=== PATIENT | male | born 1955 | race African-American/Black ===

== ENCOUNTER 2021-12-04 06:29 | Day surgery (SDC) | payer OTHER ==
[2021-12-04] MEDS ORDERED: NA CHLORIDE 0.9% 1,000 ML ONE (06:58)
[2021-12-04] MEDS ORDERED: EPINEPHRINE/PF 1 MG/ML AMP ONE (07:08)
[2021-12-04] MEDS ORDERED: propofoL 200 MG/20 ML VIAL IV ONE (07:44)
[2021-12-04] MEDS ORDERED: LIDOCAINE 1% MPF 5 ML VIAL ONE (07:44)
[2021-12-04] MEDS ORDERED: EPHEDRINE SULF 50 MG/ML VIAL ONE (08:03)
[2021-12-04] MEDS ORDERED: NS 0.9% VIAL 10 ML ONE (08:03)
--- NOTE | 2021-12-04 08:03 | ENDO RPT ---
[address], [address] EGD PROCEDURE REPORT EXAM DATE: 12/04/2021 PATIENT NAME: Guy Dillon MR#: [id number] BIRTHDATE: 1955 ATTENDING: Sal [address] STATUS: outpatient OFFICE SERVICES CLERK: Dolores Smith RN and Bouchra Marcus INDICATIONS: The patient is a 66 yr old Male here for an EGD due to anemia PROCEDURE PERFORMED: EGD with biopsy MEDICATIONS: Per Anesthesia. TOPICAL ANESTHETIC: none CONSENT: The patient understands the risks and benefits of the procedure and understands that these risks include, but are not limited to: sedation, allergic reaction, infection, perforation and/or bleeding. Alternative means of evaluation and treatment include, among others: physical exam, x-rays, and/or surgical intervention. The patient elects to proceed with this endoscopic procedure. DESCRIPTION OF PROCEDURE: During intra-op preparation period all mechanical medical equipment was checked for proper function. Hand hygiene and appropriate measures for infection prevention was taken. Procedure, possible complications, and alternatives including but not limited to the possibility of bleeding, perforation, tear, infection, sepsis, need for surgery, need for blood transfusion, and anesthesia related complications were explained to the patient. After the risks, benefits and alternatives of the procedure were thoroughly explained, Informed consent was verified, confirmed and timeout was successfully executed by the treatment team. The patient was placed in the left lateral position. The patient was anesthetized with topical anesthesia. Through the anesthetized oropharyngeal area, the scope was passed without any difficulty. The EC-3890Li ([id number]) and Pentax EG-[id number] ([id number]) endoscope was introduced through the mouth and advanced to the third portion of the duodenum. Retroflexed views revealed no abnormalities. The gastroscope was then slowly withdrawn and removed. Moderate hemorrhagic gastritis was found in the antrum. Multiple biopsies were obtained and sent to pathology. Small bowel biopsies obtained with history of unexplained anemia. ADVERSE EVENTS: There were no complications. IMPRESSIONS: 1. Moderate hemorrhagic gastritis in the antrum, s/p biopsies 2. Small bowel biopsies obtained with history of unexplained anemia RECOMMENDATIONS: 1. await biopsy results 2. acid suppression therapy REPEAT EXAM: Sal Gan Dr eSigned: Sal Gan Dr 12/04/2021 8:02 AM cc: Robby Leon CPT CODES: ICD9 CODES: PATIENT NAME: Guy Dillon MR#: [id number]
--- NOTE | 2021-12-04 08:29 | ENDO RPT ---
[address], [address] COLONOSCOPY PROCEDURE REPORT EXAM DATE: 12/04/2021 PATIENT NAME: Guy Dillon MR #: [id number] BIRTHDATE: 1955 ATTENDING: Sal Gan Dr STATUS: outpatient [employer] SPECIALIST: Dolores Smith RN and Bouchra Marcus INDICATIONS: The patient is a 66 yr old Male here for a colonoscopy due to family history of colon cancer in mother and anemia PROCEDURE PERFORMED: Colonoscopy with biopsy - cold polypectomy MEDICATIONS: Per Anesthesia. ESTIMATED BLOOD LOSS: None CONSENT: The patient understands the risks and benefits of the procedure and understands that these risks include, but are not limited to: sedation, allergic reaction, infection, perforation and/or bleeding. Alternative means of evaluation and treatment include, among others: physical exam, x-rays, and/or surgical intervention. The patient elects to proceed with this endoscopic procedure. DESCRIPTION OF PROCEDURE: During intra-op preparation period all mechanical medical equipment was checked for proper function. Hand hygiene and appropriate measures for infection prevention was taken. Procedure, possible complications, alternatives including, but not limited to possibility of bleeding, perforation, tear, infection, sepsis, need for surgery, need for blood transfusion, were explained to the patient. After the risks, benefits and alternatives of the procedure were thoroughly explained, Informed consent was verified, confirmed and timeout was successfully executed by the treatment team. The patient was placed in the left lateral position. A digital rectal exam was performed and revealed no abnormalities of the rectum. After appropriate level of anesthesia, the scope was passed. The EC-3890Li ([id number]) endoscope was introduced through the anus and advanced to the cecum, which was identified by both the appendix and ileocecal valve. The quality of the prep was good. The instrument was then slowly withdrawn as the colon was fully examined. Scope withdrawal time was 8 minutes. COLON FINDINGS: A diminutive smooth flat polyp was found in the descending colon. A polypectomy was performed with cold forceps. Small internal hemorrhoids were found. Retroflexed views revealed small hemorrhoids. The scope was then completely withdrawn from the patient and the procedure terminated. ADVERSE EVENTS: There were no complications. IMPRESSIONS: 1. Diminutive flat polyp in the descending colon; polypectomy was performed with cold forceps 2. Small internal hemorrhoids 3. Intubation to cecum RECOMMENDATIONS: 1. await biopsy results 2. avoid NSAIDS for 2 weeks RECALL: Return in 3 year(s) for Colonoscopy. Sal [address] Dr eSigned: Sal Gan Dr 12/04/2021 8:28 AM cc: Robby Leon CPT CODES: ICD9 CODES: PATIENT NAME: Guy Dillon MR#: [id number]
[2021-12-04 08:34] VITALS: TEMP 97.4; O2SAT 100
--- NOTE | 2021-12-04 08:36 | ENDO RPT ---
[address], [address] EGD PROCEDURE REPORT EXAM DATE: 12/04/2021 PATIENT NAME: Guy Dillon MR#: [id number] BIRTHDATE: 1955 ATTENDING: Sal [address] Dr STATUS: outpatient [employer] ARCHITECT: Dolores Smith RN and Bouchra Marcus INDICATIONS: The patient is a 66 yr old Male here for an EGD due to anemia PROCEDURE PERFORMED: EGD with biopsy MEDICATIONS: Per Anesthesia. TOPICAL ANESTHETIC: none CONSENT: The patient understands the risks and benefits of the procedure and understands that these risks include, but are not limited to: sedation, allergic reaction, infection, perforation and/or bleeding. Alternative means of evaluation and treatment include, among others: physical exam, x-rays, and/or surgical intervention. The patient elects to proceed with this endoscopic procedure. DESCRIPTION OF PROCEDURE: During intra-op preparation period all mechanical medical equipment was checked for proper function. Hand hygiene and appropriate measures for infection prevention was taken. Procedure, possible complications, and alternatives including but not limited to the possibility of bleeding, perforation, tear, infection, sepsis, need for surgery, need for blood transfusion, and anesthesia related complications were explained to the patient. After the risks, benefits and alternatives of the procedure were thoroughly explained, Informed consent was verified, confirmed and timeout was successfully executed by the treatment team. The patient was placed in the left lateral position. The patient was anesthetized with topical anesthesia. Through the anesthetized oropharyngeal area, the scope was passed without any difficulty. The EC-3890Li ([id number]) and Pentax EG-[id number] ([id number]) endoscope was introduced through the mouth and advanced to the third portion of the duodenum. Retroflexed views revealed no abnormalities. The gastroscope was then slowly withdrawn and removed. Moderate hemorrhagic gastritis was found in the antrum. Multiple biopsies were obtained and sent to pathology. Mild duodenitis in the bulb of the duodenum. Small bowel biopsies obtained with history of unexplained anemia. ADVERSE EVENTS: There were no complications. IMPRESSIONS: 1. Moderate hemorrhagic gastritis in the antrum, s/p biopsies 2. Mild duodenitis in the bulb of the duodenum 3. Small bowel biopsies obtained with history of unexplained anemia RECOMMENDATIONS: 1. await biopsy results 2. acid suppression therapy REPEAT EXAM: Sal Gan Dr eSigned: Sal Gan Dr 12/04/2021 8:35 AM Revised: 12/04/2021 8:35 AM cc: Robby Leon CPT CODES: ICD9 CODES: PATIENT NAME: Guy DillonBeth MR#: [id number]
[2021-12-04 09:02] VITALS: BP 124/76
== END 2021-12-04 08:57 | disposition home or self-care (01) ==
LOC: OR 06:29
PROVIDERS: ATTEND Internal Medicine Gastroenterology
PROC: 0DBM8ZX Excision of Descending Colon, Via Natural or Artificial Opening Endoscopic, Diagnostic (ICD-10-PCS; 2021-12-04)
PROC: 0DB68ZX Excision of Stomach, Via Natural or Artificial Opening Endoscopic, Diagnostic (ICD-10-PCS; principal; 2021-12-04 07:30)
PROC: 0DB88ZX Excision of Small Intestine, Via Natural or Artificial Opening Endoscopic, Diagnostic (ICD-10-PCS; 2021-12-04 07:30)
DX: D64.9 Anemia, unspecified (principal); Z80.0 Family history of malignant neoplasm of digestive organs; K29.50 Unspecified chronic gastritis without bleeding; K63.5 Polyp of colon; Z20.822 Contact with and (suspected) exposure to COVID-19; K29.80 Duodenitis without bleeding
CPT/HCPCS: 88312; 82947; 88305; 43239; 45380; U0003; J2704; J7030; J0171